=== PATIENT | male | born 1955 | race Caucasian/White ===

== ENCOUNTER → 2021-02-26 11:23 | Outpatient (BNVA) | payer MEDICAID, SELFPAY | PROVIDERS: Visit Provider Registered Nurse | DX: I10 Essential (primary) hypertension (principal); E03.9 Hypothyroidism, unspecified; E78.5 Hyperlipidemia, unspecified; E55.9 Vitamin D deficiency, unspecified | CPT/HCPCS: 80053; 80061; 82306; 84443; 85025 ==

== ENCOUNTER → 2021-09-24 09:31 | Outpatient (BNVA) | payer MEDICAID, SELFPAY | PROVIDERS: PCP Registered Nurse; Visit Provider Registered Nurse | DX: Z00.00 Encounter for general adult medical examination without abnormal findings (principal); I10 Essential (primary) hypertension | CPT/HCPCS: 80053; G0103 ==

== ENCOUNTER 2021-10-09 09:16 | Outpatient (CLI) | payer MEDICAID, SELFPAY ==
--- NOTE | 2021-10-09 10:15 | CT_ITS ---
WS: [id number] LDCT LUNG CANCER SCREENING TECHNIQUE: Noncontrast CT of the chest with coronal and sagittal reformatted images. CLINICAL INFORMATION: Z12.2 - Encounter for screening for malignant neoplasm COMPARISON: None. DLP: 80.29 mGy.cm DIvol: Mean CTDIvol: 1.60 (mGy) All CT scans at [facility] use at least one of these dose optimization techniques: automat ed exposure control; mA and/or kV adjustment per patient size (includes targeted exams where dose is matched to clinical indication); or iterative reconstruction. FINDINGS: Moderate chronic emphysematous changes. Single tiny noncalcified nodule RIGHT upper lobe me asuring 2 mm. No other suspicious pulmonary parenchymal opacities. Normal caliber thoracic aorta. Mild aortic and coronary calcification. No mediastinal or hilar lympha denopathy. No axillary lymphadenopathy. Partially visualized adrenal glands appear normal. Normal GE junction. Hypertrophic changes thoracic spine. Mild chronic appearing compression inferior endplate upper thoracic spine at T1 and superior e ndplate T3. CT/CT lung screening [id number] IMPRESSION: LUNG-RADS: 2-Benign Appearance or Behavior FOLLOW UP: 12 Month: Continue annual screening with LDCT
== END 2021-10-09 09:17 | disposition home or self-care (01) ==
LOC: RAD 09:16
PROVIDERS: PCP Registered Nurse; Visit Provider Registered Nurse
DX: Z12.2 Encounter for screening for malignant neoplasm of respiratory organs (principal)
CPT/HCPCS: 71271

== ENCOUNTER → 2022-12-23 15:23 | Outpatient (BNVA) | payer MEDICARE, MEDICAID, SELFPAY | PROVIDERS: PCP Registered Nurse; Visit Provider Registered Nurse | DX: I10 Essential (primary) hypertension (principal) | CPT/HCPCS: 80053; 84443; 85025 ==

== ENCOUNTER → 2023-12-10 10:33 | Outpatient (BNVA) | payer MEDICARE, MEDICAID, SELFPAY | PROVIDERS: PCP Registered Nurse; Visit Provider Registered Nurse | DX: Z79.1 Long term (current) use of non-steroidal anti-inflammatories (NSAID) (principal); F32.9 Major depressive disorder, single episode, unspecified; M54.50 Low back pain, unspecified; G89.29 Other chronic pain | CPT/HCPCS: 80053 ==

== ENCOUNTER 2024-10-10 12:24 | Outpatient (CLI) | payer MEDICARE, MEDICAID, SELFPAY ==
--- NOTE | 2024-10-10 | ECG_ITS ---
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 Interpretive Statements EXERCISE STRESS TEST EXERCISE DATA: The patient was exercised by Eric protocol. Baseline heart rate was 103 beats per minute. Baseline blood pressure was 115/92millimeters of mercury. Maximal predicted heart rate was 153 beats per minute. Maximum heart rate achieved was 127, which was 83% of the maximum predicted heart rate. Maximum blood pressure was 190/98 millimeters of mercury. Total exercise time was 5 minutes and 17 seconds. Maximum METs achieved was 7.0. The reason for ending the test was leg fatigue. The patient complained of [] during the stress test, which then resolved at the end of the test. ELECTROCARDIOGRAM: BASELINE: Showed sinus rhythm, normal axis, no significant ST-T changes at the baseline noted. [] EXERCISE: At the peak exercise level, [] No significant ST-T changes suggestive of ischemia noted. [] RECOVERY: During the recovery period, heart rate dropped appropriately. No significant ST-T changes in the recovery suggestive of ischemia noted. [] CONCLUSION: 1. Exercise capacity is fair 2. Heart rate response was suboptimal as patient could not reach target heart rate secondary to leg pain. 3. Blood pressure response was appropriate 4. Symptoms not suggestive of ischemia. 5. Stress test was indeterminate to rule out ischemia because of not reaching target heart rate secondary to leg pain. No significant changes on EKG seen at maximal heart rate achieved. Electronically Signed On 10-22-2024 13:02:19 CDT by Librado Goncalves M.D. [email or web address]
[2024-10-10 12:42] VITALS: BMI 21.1
[2024-10-10 13:04] VITALS: BP 155/108; PULSE 102
== END 2024-10-10 12:25 | disposition home or self-care (01) ==
LOC: CDL 12:26
PROVIDERS: PCP Registered Nurse; Visit Provider Registered Nurse
DX: R07.9 Chest pain, unspecified (principal); R93.1 Abnormal findings on diagnostic imaging of heart and coronary circulation
CPT/HCPCS: 93017

== ENCOUNTER → 2025-01-20 11:11 | Outpatient (BNVA) | payer MEDICARE, MEDICAID, SELFPAY | PROVIDERS: PCP Registered Nurse; Visit Provider Registered Nurse | DX: I10 Essential (primary) hypertension (principal) | CPT/HCPCS: 80053; 80061; 85025 ==